=== PATIENT | male | born 1960 | race Caucasian/White ===

== ENCOUNTER 2016-06-10 10:35 | Emergency (ER) | payer OTHER ==
[~2016-06-10] VITALS: Ht 185.4 cm; Wt 128.0 kg
[~2016-06-10 10:35] MED LIST: ALBU1AER INH; PRED50TA PO; Z.0.NO CURRENT MEDS
[2016-06-10 10:36] VITALS: BP 152/77; PULSE 74; RESP 20; TEMP 98; O2SAT 89
[2016-06-10] MEDS ORDERED: SODIUM CHLORIDE 0.9% FLUSH 10 ML FLUSH IVF PRN (11:15)
[2016-06-10 11:25] VITALS: RESP 18; O2SAT 96
--- NOTE | 2016-06-10 11:26 | PD ---
HPI . Bilateral leg swelling Chief Complaint: Edema Time Seen by Provider: 11:10 Travel History International Travel<30 days: No Contact w/Intl Traveler<30days: No Traveled to known affect area: No History of Present Illness HPI Patient presents complaining with bilateral leg swelling. This is been going on for about 2 months. He states that it has been getting progressively worse. He reports that it is better after he has slept and is worse after he has been on his feet all day. He states that he has some mild discomfort in his feet associated with the swelling. He reports that he has been seen by his primary care provider who placed him on Lasix, 20 mg a day. The swelling has persisted. He states that his primary care provider instructed him to come to the emergency department this morning for rule out DVT. Patient denies any chest pain or shortness of breath. The patient does use tobacco. He has a history of COPD. He reports that he does a lot of car trips for his job. He states that it is not at all unusual for him to spend 3 or 4 hours in a car every day. [facility] Past Medical History Medical History: Denies Significant Hx Hx Anticoagulant Therapy: No Cardiovascular Problems: No Chemotherapy: No Cerebrovascular Accident: No Diabetes: No Diminished Hearing: No Respiratory: No Immunizations Current: Yes Tetanus Vaccination: > 5 Years Influenza Vaccination: No Past Surgical History Surgical History: No Previous Surgery Tonsillectomy: Yes Social History Alcohol Use: Yes (socially beer) Tobacco Use: Yes (1 ppd) Substance Use: No Allergies-Medications (Allergen,Severity, Reaction): Coded Allergies: No Known Allergies (Unverified , 06/10/16) Reported Meds & Prescriptions Reported Meds & Active Scripts Active No Active Prescriptions or Reported Medications Review of Systems Except as stated in HPI: all other systems reviewed are Neg General / Constitutional: No: Fever, Chills Cardiovascular: No: Chest Pain or Discomfort Respiratory: No: Shortness of Breath Gastrointestinal: No: Nausea, Vomiting, Diarrhea Musculoskeletal: Positive: Myalgias, Edema Physical Exam Narrative GENERAL: Patient is laying on the bed using his cell phone in no acute distress. SKIN: Warm and dry. No discoloration of the skin of the lower extremities. HEAD: Atraumatic. Normocephalic. EYES: Pupils equal and round. ENT: No nasal bleeding or discharge. Mucous membranes pink and moist. NECK: Trachea midline. Neck is supple. CARDIOVASCULAR: Regular rate and rhythm. Heart sounds are normal. RESPIRATORY: No accessory muscle use. Lungs are clear with full air movement throughout. GASTROINTESTINAL: Abdomen soft, non-tender, nondistended. MUSCULOSKELETAL: No obvious deformities. 4+ pretibial pitting edema bilaterally. NEUROLOGICAL: Awake and alert. No obvious cranial nerve deficits. Motor grossly within normal limits. Normal speech. PSYCHIATRIC: Appropriate mood and affect; insight and judgment normal. Data Data Last Documented VS Vital Signs Date Time Temp Pulse Resp B/P Pulse Ox O2 Delivery O2 Flow Rate FiO2 06/10/16 11:25 18 96 Nasal Cannula 2 06/10/16 10:36 98.0 74 152/77 Orders Complete Blood Count With Diff (06/10/16 11:13) Basic Metabolic Panel (Bmp) (06/10/16 11:13) B-Type Natriuretic Peptide (06/10/16 11:13) D-Dimer (06/10/16 11:13) Ckmb (Isoenzyme) Profile (06/10/16 11:13) Troponin I (06/10/16 11:13) Iv Access Insert/Monitor (06/10/16 11:13) Electrocardiogram (06/10/16 11:13) Ecg Monitoring (06/10/16 11:13) Oximetry (06/10/16 11:13) Oxygen Administration (06/10/16 11:13) Chest, Single Ap (06/10/16 11:13) Sodium Chloride 0.9% Flush (Ns Flush) (06/10/16 11:15) Ed Poc Ultrasound (06/10/16 11:15) CKMB (06/10/16 11:21) CKMB% (06/10/16 11:21) Labs Laboratory Tests Test 06/10/16 11:21 White Blood Count 8.8 TH/MM3 Red Blood Count 5.36 MIL/MM3 Hemoglobin 17.0 GM/DL Hematocrit 49.5 % Mean Corpuscular Volume 92.4 FL Mean Corpuscular Hemoglobin 31.7 PG Mean Corpuscular Hemoglobin 34.3 % Concent Red Cell Distribution Width 13.7 % Platelet Count 178 TH/MM3 Mean Platelet Volume 8.6 FL Neutrophils (%) (Auto) 63.2 % Lymphocytes (%) (Auto) 24.4 % Monocytes (%) (Auto) 8.3 % Eosinophils (%) (Auto) 3.4 % Basophils (%) (Auto) 0.7 % Neutrophils # (Auto) 5.6 TH/MM3 Lymphocytes # (Auto) 2.2 TH/MM3 Monocytes # (Auto) 0.7 TH/MM3 Eosinophils # (Auto) 0.3 TH/MM3 Basophils # (Auto) 0.1 TH/MM3 CBC Comment DIFF FINAL Differential Comment D-Dimer Quantitative (PE/DVT) 0.24 MG/L FEU Sodium Level 140 MEQ/L Potassium Level 4.4 MEQ/L Chloride Level 104 MEQ/L Carbon Dioxide Level 33.1 MEQ/L Anion Gap 3 MEQ/L Blood Urea Nitrogen 10 MG/DL Creatinine 0.82 MG/DL Estimat Glomerular Filtration 98 ML/MIN Rate Random Glucose 91 MG/DL Calcium Level 8.8 MG/DL Total Creatine Kinase 142 U/L Creatine Kinase MB 1.7 NG/ML Troponin I LESS THAN 0.02 NG/ML B-Type Natriuretic Peptide 15 PG/ML MDM Medical Decision Making Medical Screen Exam Complete: Yes Emergency Medical Condition: Yes Medical Record Reviewed: Yes (medical history is significant for COPD) Differential Diagnosis Differential diagnosis of leg pain includes but is not limited to lumbar radiculopathy, arthritis, myalgias, DVT. Narrative Course Patient presents for evaluation of bilateral lower extremity edema. His Wells criteria for DVT is 0. His heart criteria is 1 because he is over 50. CBC & BMP Diagram 06/10/16 11:21 Cardiac enzymes are negative. BNP is 15. D-dimer is 0.24. Last Impressions Chest X-Ray 06/10/16 1113 Signed Impressions: Service Date/Time: Friday, June 10, 2016 11:24 - CONCLUSION: No acute disease. Monica Her MD Chest x-ray was independently viewed by me. Procedures Procedure Narrative Venous ultrasound Bilateral venous ultrasound from the groin to the popliteal fossa shows compressible veins with no visible clot. Diagnosis Primary Impression: Peripheral edema Patient Instructions: General Instructions, Leg Edema (ED) Additional Instructions: Buy compressive stockings from the drugstore and wear while you're on your feet during the day. Scripts No Active Prescriptions or Reported Meds Disposition: 01 DISCHARGE HOME Condition: Stable Emelia Chavez MD Jun 10, 2016 11:26
[2016-06-10 11:44] LABS: AUTOMATED NEUTROPHIL # 5.6 TH/MM3 (1.8-7.7); BASOPHIL # 0.1 TH/MM3 (0-0.2); BASOPHIL % 0.7 % (0.0-2.0); EOSINOPHIL # 0.3 TH/MM3 (0-0.4); EOSINOPHIL % 3.4 % (0.0-4.0); HEMATOCRIT 49.5 % (39.0-51.0); HEMO FLAGS DIFF FINAL; LYMPH % 24.4 % (9.0-44.0); LYMPHOCYTE # 2.2 TH/MM3 (1.0-4.8); MEAN CELL VOLUME 92.4 FL (80.0-100.0); MEAN CORPUSCULAR HEMOGLOBIN 31.7 PG (27.0-34.0); MEAN CORPUSCULAR HGB CONC 34.3 % (32.0-36.0); MONO % 8.3 % (0.0-8.0); NEUT % 63.2 % (16.0-70.0); PLATELET COUNT 178 TH/MM3 (150-450); RED BLOOD COUNT 5.36 MIL/MM3 (4.50-5.90); RED CELL DISTRIBUTION WIDTH 13.7 % (11.6-17.2); WHITE BLOOD COUNT 8.8 TH/MM3 (4.0-11.0)
--- NOTE | 2016-06-10 11:46 | RADRPT ---
EXAM DATE/TIME: 06/10/2016 11:24 [facility] COMPARISON: CHEST PA & LAT, October 21, 2011, 4:37. INDICATIONS : Bilateral lower extremity swelling. MEDICAL HISTORY : None. SURGICAL HISTORY : None. ENCOUNTER: Initial ACUITY: 3 days PAIN SCORE: 0/10 LOCATION: Bilateral chest FINDINGS: A single view of the chest demonstrates the lungs to be symmetrically aerated without evidence of mas s, infiltrate or effusion. The cardiomediastinal contours are unremarkable. Osseous structures are intact. CONCLUSION: No acute disease. Monica Her MD on June 10, 2016 at 11:44 Board Certified Radiologist. This report was verified electronically.
[2016-06-10 11:56] LABS: ANION GAP 3 MEQ/L (5-15); BICARBONATE 33.1 MEQ/L (21.0-32.0); BLOOD UREA NITROGEN 10 MG/DL (7-18); CHLORIDE 104 MEQ/L (98-107); GLOMERULAR FILTRATION RATE 98 ML/MIN (>89); POTASSIUM 4.4 MEQ/L (3.5-5.1); SODIUM (NA) 140 MEQ/L (136-145)
[2016-06-10 11:59] LABS: CREATINE KINASE 142 U/L (39-308)
[2016-06-10 12:12] LABS: CKMB 1.7 NG/ML (0.5-3.6)
[2016-06-10 12:40] VITALS: BP 130/77; TEMP 98
--- NOTE | 2016-06-11 10:35 | EKG ---
Date Performed: 06/10/2016 Time Performed: 11:37:38 PTAGE: 55 years EKG: Sinus rhythm MARKED LEFT AXIS DEVIATION PATTERN CONSISTENT WITH PULMONARY DISEASE ABNORMAL ECG Compared to prior tracing no significant change PREVIOUS TRACING : 10/21/2011 04.42 DOCTOR: Kenny Ovalle Interpretating Date/Time 06/11/2016 10:28:21
== END 2016-06-10 12:40 | disposition home or self-care (01) ==
LOC: NEPD 10:35
DX: R60.0 Localized edema (principal); R94.31 Abnormal electrocardiogram [ECG] [EKG]; J44.9 Chronic obstructive pulmonary disease, unspecified; F17.210 Nicotine dependence, cigarettes, uncomplicated
CPT/HCPCS: 71010; 80048; 82550; 82552; 83880; 84484; 85025; 85379; 93005